=== PATIENT | male | born 1995 | race Caucasian/White ===

== ENCOUNTER 2017-02-27 06:30 | Emergency (ER) | payer OTHER ==
[2017-02-27 07:36] VITALS: BP 133/79
== END 2017-02-27 07:36 | disposition home or self-care (01) ==
LOC: ED 06:30
DX: S61.012D Laceration without foreign body of left thumb without damage to nail, subsequent encounter (principal); X58.XXXD Exposure to other specified factors, subsequent encounter; Y92.89 Other specified places as the place of occurrence of the external cause; Y99.8 Other external cause status

== ENCOUNTER 2017-03-28 21:46 | Emergency (ER) | payer OTHER ==
[2017-03-28 22:44] LABS: microscopic required? NO
[2017-03-28 22:54] LABS: UA SPECIFIC GRAVITY >=1.030 (1.005-1.035); urine erythrocyte NEGATIVE (NEGATIVE)
[2017-03-29 01:06] VITALS: BP 112/71
== END 2017-03-29 01:06 | disposition home or self-care (01) ==
LOC: ED 21:46
PROVIDERS: Emergency Medicine
DX: N50.812 Left testicular pain (principal); N50.811 Right testicular pain; J45.909 Unspecified asthma, uncomplicated
CPT/HCPCS: Q0092